=== PATIENT | male | born 1950 | race Caucasian/White ===

== ENCOUNTER 2017-01-12 05:39 | Inpatient (IN) | payer MEDICARE, OTHER ==
[~2017-01-12 05:39] MED LIST: ASPIRIN EC81 MG PO; BABY ASPIRIN81 MG PO; FARXIGA10 M1 PO; FISH OIL 1,0001 CA PO; H PO; JANUVIA100 M1 PO; LIPITOR10 M1 PO; LISINOPRIL10 MG PO; METFORMIN HCL1000 M1 PO; METFORMIN HCL500 PO; NORCO 5/3251 TAB PO; OXYCODONE/APAP PO; PROTONIX40 M2 PO; ULTRACET1 TAB PO; ULTRAM50 MG PO; VITAMIN D31000 UNI3 PO; XANAX0.5 M1 PO
[2017-01-12 06:34] LABS: BASO % 0.5 % (0-2); EOS % 2.6 % (0-7); EOSINOPHIL ABSOLUTE COUNT 0.2 tho/cmm (0.0-0.7); HCT-HEMATOCRIT 45.7 % (36.0-53.5); HGB-HEMOGLOBIN 15.6 gm/dl (13.5-17.0); IMMATURE GRANULOCYTES ABSOLUTE 0.01 tho/cmm (0-0.03); IMMATURE GRANULOCYTES PERCENT 0.2 % (0-0.3); LYMPH % 25.7 % (20-45); LYMPH ABSOLUTE COUNT 1.7 tho/cmm (0.8-4.5); MCH (MEAN CORPUSCULAR HGB) 30.4 pg (28.0-32.0); MCHC MEAN CORPUSCULAR HGB CONC 34.1 % (32.0-36.0); MCV (MEAN CELL VOLUME) 88.9 fl (82.0-96.0); MEAN PLATELET VOLUME 9.4 cmc (9.4-12.4); MONOCYTE ABSOLUTE COUNT 0.6 tho/cmm (0.0-1.2); PLATELET COUNT 197 tho/cmm (150-450); RED BLOOD COUNT 5.14 mil/cmm (4.40-5.70); RED CELL DISTRIBUTION WIDTH 14.2 % (12.4-16.4); WHITE BLOOD COUNT 6.4 tho/cmm (4.0-10.0)
[2017-01-12 06:41] LABS: PROTHROMBIN TIME 11.6 SECONDS (9.0-13.6)
[2017-01-12 06:47] LABS: ANION GAP 12 mmol/L (0-20); BLOOD UREA NITROGEN 19 mg/dl (6-24); CALCIUM 9.1 mg/dl (8.5-10.5); CARBON DIOXIDE-VENOUS 27 mmol/L (22-32); CHLORIDE 106 mmol/l (96-110); GLUCOSE 127 mg/dL (70-110); POTASSIUM 4.4 mmol/L (3.7-5.1); SODIUM 141 mmol/L (135-145); eGFR VALUE FOR BLACK 60 mL/Min
[2017-01-13 06:46] LABS: BASO % 0.1 % (0-2); EOS % 0.7 % (0-7); EOSINOPHIL ABSOLUTE COUNT 0.1 tho/cmm (0.0-0.7); HCT-HEMATOCRIT 41.1 % (36.0-53.5); IMMATURE GRANULOCYTES ABSOLUTE 0.02 tho/cmm (0-0.03); IMMATURE GRANULOCYTES PERCENT 0.2 % (0-0.3); LYMPH % 16.4 % (20-45); LYMPH ABSOLUTE COUNT 1.6 tho/cmm (0.8-4.5); MCH (MEAN CORPUSCULAR HGB) 30.2 pg (28.0-32.0); MCHC MEAN CORPUSCULAR HGB CONC 34.1 % (32.0-36.0); MCV (MEAN CELL VOLUME) 88.6 fl (82.0-96.0); MEAN PLATELET VOLUME 9.3 cmc (9.4-12.4); MONO % 10.5 % (0-12); NEUTROPHIL ABSOLUTE COUNT 7.1 tho/cmm (1.6-8.0); NEUTROPHIL-AUTOMATED 7.1 tho/cmm (1.6-8.0); NEUTROPHILS % 72.1 % (40-80); PLATELET COUNT 179 tho/cmm (150-450); RED BLOOD COUNT 4.64 mil/cmm (4.40-5.70); RED CELL DISTRIBUTION WIDTH 14.2 % (12.4-16.4)
[2017-01-13 06:48] LABS: WHITE BLOOD COUNT 9.8 tho/cmm (4.0-10.0)
[2017-01-13 06:58] LABS: ANION GAP 12 mmol/L (0-20); BLOOD UREA NITROGEN 18 mg/dl (6-24); CALCIUM 8.2 mg/dl (8.5-10.5); CARBON DIOXIDE-VENOUS 24 mmol/L (22-32); CHLORIDE 107 mmol/l (96-110); CREATININE 1.41 mg/dl (0.60-1.30); GLUCOSE 128 mg/dL (70-110); POTASSIUM 4.4 mmol/L (3.7-5.1); SODIUM 139 mmol/L (135-145); eGFR VALUE FOR BLACK 60 mL/Min
--- NOTE | 2017-01-13 14:23 | NUR ---
VIRTUAL CARE NOTE: PT RESTING ON BED, FAMILY AT BEDSIDE. PT STATES DOING GOOD WITH ORAL INTAKE, DIET ADVANCED AND TOLERATED WELL. CARBAJAL REMOVED AND VOIDED WITHOUT PROBLEMS. PT STATES STILL HAVING PAIN ISSUES, PAIN MANAGEMENT PLAN DISCUSSED WITH PT, PT WOULD LIKE TO HAVE PAIN PILLS NOW-PAGED TO FLOOR NURSE AND ADVICE TO CALL NURSE FOR PAIN TX TO STAY AHEAD OF THE PAIN AND AVOID USING IV ROUTE POSSIBLE. PT DENIES ANY FURTHER NEEDS OR QUESTIONS.
[2017-01-14 06:00] LABS: BASO % 0.3 % (0-2); EOS % 1.2 % (0-7); EOSINOPHIL ABSOLUTE COUNT 0.1 tho/cmm (0.0-0.7); HCT-HEMATOCRIT 41.4 % (36.0-53.5); IMMATURE GRANULOCYTES ABSOLUTE 0.02 tho/cmm (0-0.03); IMMATURE GRANULOCYTES PERCENT 0.2 % (0-0.3); LYMPH % 14.5 % (20-45); LYMPH ABSOLUTE COUNT 1.3 tho/cmm (0.8-4.5); MCH (MEAN CORPUSCULAR HGB) 30.3 pg (28.0-32.0); MCHC MEAN CORPUSCULAR HGB CONC 33.8 % (32.0-36.0); MCV (MEAN CELL VOLUME) 89.6 fl (82.0-96.0); MEAN PLATELET VOLUME 9.1 cmc (9.4-12.4); MONO % 11.2 % (0-12); NEUTROPHIL ABSOLUTE COUNT 6.5 tho/cmm (1.6-8.0); NEUTROPHIL-AUTOMATED 6.5 tho/cmm (1.6-8.0); NEUTROPHILS % 72.6 % (40-80); PLATELET COUNT 157 tho/cmm (150-450); RED BLOOD COUNT 4.62 mil/cmm (4.40-5.70); RED CELL DISTRIBUTION WIDTH 14.3 % (12.4-16.4)
[2017-01-14 06:12] LABS: ANION GAP 10 mmol/L (0-20); BLOOD UREA NITROGEN 19 mg/dl (6-24); CALCIUM 8.7 mg/dl (8.5-10.5); CARBON DIOXIDE-VENOUS 28 mmol/L (22-32); CHLORIDE 103 mmol/l (96-110); CREATININE 1.58 mg/dl (0.60-1.30); GLUCOSE 127 mg/dL (70-110); POTASSIUM 4.2 mmol/L (3.7-5.1); SODIUM 137 mmol/L (135-145); eGFR VALUE FOR BLACK 52 mL/Min
[2017-01-15] MEDS ORDERED: PERCOCET 5-3251 EACH PO (12:48)
[2017-01-15] MEDS ORDERED: COLACE100 M1 PO (12:48)
[2017-01-15] MEDS ORDERED: TYLENOL325 M2 PO (12:49)
[2017-01-16 08:19] LABS: BODY FLUID TYPE JP FLUID
== END 2017-01-15 13:25 | DRG 660 ==
LOC: SHSC 05:39 → ORW 07:34 → 5WD 12:20
PROVIDERS: ADMIT Urology
PROC: 0TB14ZZ Excision of Left Kidney, Percutaneous Endoscopic Approach (ICD-10-PCS; principal; 2017-01-12)
PROC: 8E0W4CZ Robotic Assisted Procedure of Trunk Region, Percutaneous Endoscopic Approach (ICD-10-PCS; 2017-01-12)
PROC: BT42ZZZ Ultrasonography of Left Kidney (ICD-10-PCS; 2017-01-12)
PROC: 5A09357 Assistance with Respiratory Ventilation, Less than 24 Consecutive Hours, Continuous Positive Airway Pressure (ICD-10-PCS; 2017-01-12)
DX: N28.9 Disorder of kidney and ureter, unspecified (principal); K56.7 Ileus, unspecified; I10 Essential (primary) hypertension; E11.9 Type 2 diabetes mellitus without complications; F41.9 Anxiety disorder, unspecified; N40.0 Benign prostatic hyperplasia without lower urinary tract symptoms; K21.9 Gastro-esophageal reflux disease without esophagitis; E78.1 Pure hyperglyceridemia; G47.33 Obstructive sleep apnea (adult) (pediatric); F17.210 Nicotine dependence, cigarettes, uncomplicated; Z79.82 Long term (current) use of aspirin; Z79.84 Long term (current) use of oral hypoglycemic drugs
CPT/HCPCS: J0690; J1170; J2150; J2250; J2405; J3010; J7030